=== PATIENT | male | born 1955 | race Caucasian/White ===

== ENCOUNTER 2020-01-12 00:39 | Inpatient (IN) | payer OTHER ==
[2020-01-12 01:08] LABS: #Eosinphils 0.2 thou/uL (0.0-0.7); #Lymphocytes 1.7 thou/uL (1.20-3.40); #Monocytes 0.8 thou/uL (0.11-0.59); #Neutrophils 3.3 thou/uL (1.40-6.50); %Basophils 0.4 % (0.0-1.0); %Eosinophils 3.4 % (0.0-10.0); %Lymphocytes 27.8 % (21.0-51.0); %Monocytes 13.3 % (0.0-10.0); %Neutrophils 55.1 % (42.0-75.0); Hemoglobin 16.3 g/dL (14.0-18.0); Mean Corpuscular HGB CONC 34.5 g/dL (32.0-36.0); Mean Corpuscular Hemoglobin 30.7 pg (27.0-31.0); Mean Corpuscular Volume 89.2 fL (78.0-98.0); Mean Platelet Volume 7.5 fL (7.4-10.4); Platelet Count 265 thou/uL (130-400); RBC Distribution Width 11.3 % (11.5-14.5); Red Blood Cell (RBC) Count 5.29 mill/uL (4.70-6.10)
[2020-01-12 01:37] LABS: ALT (SGPT) 18 U/L (8-55); AST (SGOT) 19 U/L (5-34); Albumin 4.4 g/dL (3.4-4.8); Alkaline Phosphatase 76 U/L (40-110); Anion Gap 17 mmol/L (10-20); BUN (Urea Nitrogen) 19 mg/dL (8.4-25.7); Bilirubin, Total 0.4 mg/dL (0.2-1.2); Calc. Creatinine Clearance 0 mL/min (70-130); Calcium 9.6 mg/dL (7.8-10.44); Carbon Dioxide 22 mmol/L (23-31); Chloride 104 mmol/L (98-107); Estimated GFR-MDRD 80; Globulin 2.3 g/dL (2.4-3.5); Glucose 111 mg/dL (80-115); Potassium 4.2 mmol/L (3.5-5.1); Protein, Total 6.7 g/dL (5.8-8.1); Sodium 139 mmol/L (136-145)
[2020-01-12] MEDS ORDERED: Diltiazem 125 MG/25 ML ONE (02:17)
[2020-01-12] MEDS ORDERED: Diltiazem 125 MG in Sodium Chloride 0.9% 100 ML IVPB SCH (02:30)
[2020-01-12] MEDS ORDERED: Acetaminophen 325 MG TAB PO PRN (02:46)
[2020-01-12] MEDS ORDERED: Senokot S 8.6-50 MG TAB PO PRN (02:46)
[2020-01-12 04:41] VITALS: BMI 28.8
--- NOTE | 2020-01-12 04:42 | HP ---
CHIEF COMPLAINT: Palpitations. HISTORY OF PRESENT ILLNESS: The patient is a very pleasant 64-year-old male, who comes into the hospital after feeling significant amount of palpitations x1 day. The patient states that he was trying to have a bowel movement, was treating quite a bit, started feeling that his heart was racing. At that time, he took his blood pressure and noted that his heart rate was in the 130s. The patient states that this has never happened to him before. The patient stated that he did have some lightheadedness initially when he felt the palpitations. PAST MEDICAL HISTORY: He has a history of hypertension. PAST SURGICAL HISTORY: He had ventral hernia repair and tonsillectomy. FAMILY HISTORY: Father of liver cancer. Mother had COPD. SOCIAL HISTORY: He denies any alcohol use, drug use, or smoking history. He is a full code. ALLERGIES: HE HAS NO KNOWN DRUG ALLERGIES. MEDICATIONS: Aspirin 81 mg daily. Currently he is on: 1. Ibuprofen. 2. Amlodipine 5 mg daily. 3. Irbesartan 75 mg p.o. daily. PHYSICAL EXAMINATION: VITAL SIGNS: Temperature 97.9, 97% on room air, 17, 155/106 initially, and his heart rate was 143. GENERAL: He is awake, alert, and oriented x3. Does not appear in distress. CV: Irregularly irregular. No murmurs or rubs heard. LUNGS: Clear to auscultation. No rhonchi or wheezes noted. ABDOMEN: Soft and nontender. Bowel sounds are present x2. EXTREMITIES: No edema. Pedal pulses are present x2. NEUROVASCULAR: No focal deficits noted. SKIN: No cuts, lesions or bruises noted. LABORATORY RESULTS: As of the following; WBCs of 6.0, hemoglobin of 16.3, hematocrit of 47.2, platelets of 265. Chemistry; sodium of 139, potassium of 4.2, BUN of 19, creatinine 0.95. Troponin x1 was negative. His chest x-ray did not show any acute abnormalities. EKG showed atrial fibrillation. ASSESSMENT AND PLAN: The patient is a very pleasant 64-year-old male, who presents to the hospital with complaints of palpitations. 1. Atrial fibrillation with rapid ventricular rate, new onset. The patient's CHADS-VASc score is 1 on calculation. He is currently on aspirin and we will continue that. He is currently on a Cardizem drip we will continue that. We will also get Cardiology involved. We will get an echocardiogram and check a TSH. 2. Hypertension. We will continue his home medications. 3. Deep venous thrombosis prophylaxis. We will put the patient on subcu Lovenox. Job ID: [id number]
[2020-01-12 04:56] LABS: #Basophils 0.1 thou/uL (0.0-0.2); #Eosinphils 0.2 thou/uL (0.0-0.7); #Lymphocytes 1.5 thou/uL (1.20-3.40); #Monocytes 0.7 thou/uL (0.11-0.59); #Neutrophils 2.9 thou/uL (1.40-6.50); %Eosinophils 2.8 % (0.0-10.0); %Lymphocytes 28.4 % (21.0-51.0); %Monocytes 12.4 % (0.0-10.0); %Neutrophils 55.4 % (42.0-75.0); Hemoglobin 15.2 g/dL (14.0-18.0); Mean Corpuscular HGB CONC 33.9 g/dL (32.0-36.0); Mean Corpuscular Hemoglobin 30.1 pg (27.0-31.0); Mean Corpuscular Volume 88.9 fL (78.0-98.0); Mean Platelet Volume 7.5 fL (7.4-10.4); Platelet Count 259 thou/uL (130-400); RBC Distribution Width 11.3 % (11.5-14.5); Red Blood Cell (RBC) Count 5.05 mill/uL (4.70-6.10); White Blood Cell (WBC) Count 5.3 thou/uL (4.8-10.8)
[2020-01-12 05:29] LABS: Troponin I Less than 0.010 ng/mL (< 0.028)
[2020-01-12 05:30] LABS: Anion Gap 11 mmol/L (10-20); BUN (Urea Nitrogen) 16 mg/dL (8.4-25.7); Calc. Creatinine Clearance 134 mL/min (70-130); Calcium 9.3 mg/dL (7.8-10.44); Carbon Dioxide 25 mmol/L (23-31); Chloride 107 mmol/L (98-107); Estimated GFR-MDRD 88; Glucose 98 mg/dL (80-115); Potassium 4.1 mmol/L (3.5-5.1); Sodium 139 mmol/L (136-145)
[2020-01-12 08:02] LABS: Troponin I Less than 0.010 ng/mL (< 0.028)
[2020-01-12] MEDS ORDERED: Naproxen 500 MG TAB PO PRN (08:45)
[2020-01-12] MEDS ORDERED: Loratadine 10 MG TAB PO PRN (08:45)
[2020-01-12] MEDS ORDERED: Fluticasone Propionate Nasal Spray 16 gm Bottle NASAL SCH (09:00)
[2020-01-12] MEDS ORDERED: Losartan 25 MG TAB PO SCH ×2 (09:00)
[2020-01-12] MEDS ORDERED: Aspirin 81 mg Enteric Coated Tablet PO SCH (09:00)
[2020-01-12] MEDS ORDERED: Amlodipine 10 MG TAB PO SCH (09:00)
[2020-01-12] MEDS ORDERED: Amlodipine 5 MG TAB PO SCH (09:00)
[2020-01-12] MEDS ORDERED: Enoxaparin Sodium 40 MG/0.4 ML SYRINGE SC SCH (09:00)
[2020-01-12] MEDS ORDERED: Aspirin 325 mg Enteric Coated Tablet PO SCH (09:00)
--- NOTE | 2020-01-12 09:38 | RAD ---
Chest one view HISTORY: Palpitations. FINDINGS: No comparison. Cardiac silhouette is magnified and upper limits of normal in size. Pulmonar y vasculature is unremarkable. Mediastinum is midline. No lobar consolidation or evidence of pneumothorax. Right lateral costophreni c angle is excluded from the image. IMPRESSION: No active cardiopulmonary abnormalities are demonstrated.
--- NOTE | 2020-01-12 09:42 | CON ---
DATE OF CONSULTATION: 01/12/2020 REASON FOR CONSULTATION: Atrial fibrillation. HISTORY OF PRESENT ILLNESS: Mr. Olivarez is a very pleasant 64-year-old gentleman with no significant past medical history outside of hypertension, who states he had significant constipation. Per patient, developed fluttering and palpitations. Heart rate was in the 130s. He then proceeded to the emergency room. No chest pain or pressure noted. PAST MEDICAL HISTORY: Hypertension. PAST SURGICAL HISTORY: Ventral hernia repair, tonsillectomy. SOCIAL HISTORY: No current tobacco or alcohol use. ALLERGIES: NONE. MEDICATIONS: Include 1. Amlodipine. 2. Irbesartan. REVIEW OF SYSTEMS: A 10-point review of systems is reviewed and as above, otherwise negative. PHYSICAL EXAMINATION: GENERAL: Patient is a pleasant male who is in no acute distress. The patient appears their stated age. VITAL SIGNS: Blood pressure 108/83, pulse 103, temperature 98.3. NEUROLOGIC: The patient is alert and oriented x3 with no focal neurologic deficits. HEENT: Sclerae without icterus. Mouth has moist mucous membranes with normal pallor. NECK: No JVD. Carotid upstroke brisk. No bruits bilaterally. LUNGS: Clear to auscultation with unlabored respirations. BACK: No scoliosis or kyphosis. CARDIAC: Regular rate and rhythm with normal S1 and S2. No S3 or S4 noted. No significant rubs, murmurs, thrills, or gallops noted throughout the precordium. PMI is not displaced. There is no parasternal heave. ABDOMEN: Soft, nontender, nondistended. No peritoneal signs present. No hepatosplenomegaly. No abnormal striae. EXTREMITIES: 2+ femoral and 2+ dorsalis pedis pulses. No cyanosis, clubbing, or edema. SKIN: No gross abnormalities. PERTINENT LABORATORY DATA: Hemoglobin 15.2, hematocrit 44.9. TSH 3.0. BNP within normal limits. IMPRESSION: New onset atrial fibrillation. RECOMMENDATIONS: 1. Continue IV Cardizem. 2. Add p.o. Cardizem. 3. Add Lovenox 1 mcg/kg subcu q.12. 4. Bedside echo did appear within normal limits. 5. The patient will likely convert back to sinus. If he does not, would recommend VLADIMIR cardioversion on Tuesday. Job ID: [id number]
[2020-01-12] MEDS ORDERED: Calcium Carbonate 500 MG ChewTAB PO PRN (09:51)
[2020-01-12] MEDS ORDERED: Acetaminophen/Codeine 30-300mg Tablet PO PRN (09:51)
[2020-01-12] MEDS ORDERED: traMADol HCl 50 MG TAB PO PRN (09:51)
[2020-01-12] MEDS ORDERED: Famotidine 20 MG TAB PO PRN (09:51)
[2020-01-12] MEDS ORDERED: Enoxaparin Sodium 100 MG/ML SYRINGE SC SCH ×2 (10:00→21:00)
[2020-01-12] MEDS: Losartan 25 MG TAB PO SCH (10:49)
[2020-01-12] MEDS: Fluticasone Propionate Nasal Spray 16 gm Bottle NASAL SCH (10:56)
--- NOTE | 2020-01-12 17:04 | PRG ---
DATE OF SERVICE: 01/12/2020 SUBJECTIVE: Mr. Olivarez continues to be in atrial fibrillation with rapid ventricular response. He has been treated medically with Cardizem p.o. He continues to be on IV Cardizem. OBJECTIVE: GENERAL: Patient is a pleasant gentleman, who is in no acute distress. The patient appears their stated age. VITAL SIGNS: Heart rate 90s to 120s, respirations 18, blood pressure 135/66. NEUROLOGIC: The patient is alert and oriented x3 with no focal neurologic deficits. HEENT: Sclerae without icterus. Mouth has moist mucous membranes with normal pallor. NECK: No JVD. Carotid upstroke brisk. No bruits bilaterally. LUNGS: Clear to auscultation with unlabored respirations. BACK: No scoliosis or kyphosis. CARDIAC: Irregularly irregular. ABDOMEN: Soft, nontender, nondistended. No peritoneal signs present. No hepatosplenomegaly. No abnormal striae. EXTREMITIES: 2+ femoral and 2+ dorsalis pedis pulses. No cyanosis, clubbing, or edema. SKIN: No gross abnormalities. PERTINENT LABORATORY DATA: Hemoglobin 15.2, hematocrit 44.9. Creatinine 0.87. DIAGNOSTIC STUDIES: Echo Doppler shows LVEF 50% to 55%. IMPRESSION: New onset atrial fibrillation. RECOMMENDATIONS: Initial plan was to wait until Tuesday to proceed with VLADIMIR cardioversion if he was still in atrial fibrillation. Mr. Olivarez would like to proceed with a VLADIMIR cardioversion tomorrow. We discussed VLADIMIR in full detail. Risks include but not limited to following: Damage to teeth, mouth, back of throat; damage to esophagus as well as reaction to medication. All questions were answered. Given the above, the patient agreed to proceed with the procedure. Also discussed cardioversion with risks include, but not limited to the following: Stroke, need for repeat cardioversion, failed cardioversion as well as burning of skin. Also complications from antiarrhythmic medications. All questions were answered. Given the above, the patient agreed to proceed with procedure. We will switch from Lovenox to Eliquis. We will also recommend flecainide b.i.d. Job ID: [id number]
[2020-01-12] MEDS ORDERED: Enoxaparin Sodium 120 MG/0.8 ML SYRINGE SC SCH (21:00)
[2020-01-12] MEDS: Apixaban 5 MG TAB PO SCH (21:14)
[2020-01-12] MEDS: Flecainide 50 MG TAB PO SCH (21:15)
[2020-01-13 04:42] LABS: #Basophils 0.1 thou/uL (0.0-0.2); #Eosinphils 0.1 thou/uL (0.0-0.7); #Lymphocytes 1.6 thou/uL (1.20-3.40); #Monocytes 0.6 thou/uL (0.11-0.59); #Neutrophils 2.2 thou/uL (1.40-6.50); %Basophils 1.2 % (0.0-1.0); %Lymphocytes 34.9 % (21.0-51.0); %Monocytes 12.3 % (0.0-10.0); %Neutrophils 48.7 % (42.0-75.0); Hemoglobin 14.6 g/dL (14.0-18.0); Mean Corpuscular HGB CONC 33.4 g/dL (32.0-36.0); Mean Corpuscular Hemoglobin 29.9 pg (27.0-31.0); Mean Corpuscular Volume 89.6 fL (78.0-98.0); Mean Platelet Volume 7.4 fL (7.4-10.4); Platelet Count 242 thou/uL (130-400); RBC Distribution Width 11.2 % (11.5-14.5); Red Blood Cell (RBC) Count 4.89 mill/uL (4.70-6.10); White Blood Cell (WBC) Count 4.4 thou/uL (4.8-10.8)
[2020-01-13 05:02] LABS: Anion Gap 12 mmol/L (10-20); BUN (Urea Nitrogen) 15 mg/dL (8.4-25.7); Calc. Creatinine Clearance 120 mL/min (70-130); Calcium 8.9 mg/dL (7.8-10.44); Carbon Dioxide 23 mmol/L (23-31); Chloride 109 mmol/L (98-107); Estimated GFR-MDRD 78; Glucose 102 mg/dL (80-115); Sodium 140 mmol/L (136-145)
[2020-01-13] MEDS ORDERED: Aspirin 81 mg Enteric Coated Tablet PO SCH (09:00)
[2020-01-13] MEDS: Fluticasone Propionate Nasal Spray 16 gm Bottle NASAL SCH (09:04)
[2020-01-13] MEDS: Losartan 25 MG TAB PO SCH (09:04)
[2020-01-13] MEDS: Flecainide 50 MG TAB PO SCH (09:05)
[2020-01-13] MEDS: Apixaban 5 MG TAB PO SCH (09:05)
[2020-01-13 10:42] VITALS: BP 140/81; TEMP 97.9
--- NOTE | 2020-01-13 10:52 | PRG ---
DATE OF SERVICE: 01/13/2020 SUBJECTIVE: Mr. Olivarez is doing well. He converted to sinus rhythm this morning. He has been off IV Cardizem. OBJECTIVE: VITAL SIGNS: Blood pressure 109/67, pulse 69, and temperature 97.8. LUNGS: Clear to auscultation. HEART: Regular rate and rhythm. ABDOMEN: Soft, nontender, and nondistended. EXTREMITIES: No edema. IMPRESSION: 1. Paroxysmal atrial fibrillation. 2. Hypertension. RECOMMENDATION: The patient's CHADs score is 2. We recommend anticoagulation therapy. I discussed risks and benefits of Eliquis. He is agreeable. We will add Eliquis 5 mg p.o. b.i.d. We would also change short-acting Cardizem to long-acting Cardizem at 180 mg one p.o. q.a.m. We will also recommend discontinuing amlodipine in place of ARB for blood pressure control. Continue flecainide 50 mg p.o. b.i.d. Plan is to follow Mr. Olivarez in the office in next 1 to 2 weeks. Job ID: [id number]
--- NOTE | 2020-01-13 12:02 | DIS ---
DATE OF ADMISSION: 01/12/2020 DATE OF DISCHARGE: 01/13/2020 DISCHARGE DISPOSITION: Home. FOLLOWUP: 1. Follow up with Dr. Sanford Rojas in 1 week. 2. Follow up with Dr. Richard Tsang in 1 week. The patient was seen and examined on the day of discharge. Denies any new complaints. Vital signs showed temperature 97.9, pulse rate of 79, respirations of 18, blood pressure of 140/81, O2 saturation 94% on room air. DISCHARGE MEDICATIONS: 1. Flecainide 50 mg b.i.d. 2. Eliquis 5 mg b.i.d. 3. Cardizem 180 mg daily. 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 Tsang. SIGNIFICANT LABS: Troponins were negative. Electrolytes in normal range. WBC on admission 6.0 with hemoglobin 16.3, platelet count of 265. Respiratory viral panel was positive for rhinovirus. Echocardiogram showed left ventricular ejection fraction of 50% to 55% with mild dilatation of the left atrium. TSH was 3.0. BRIEF HOSPITAL COURSE: The patient is a 64-year-old male with hypertension, presented to the hospital with palpitations. His workup was consistent with atrial fibrillation with rapid ventricular response with heart rate of 130s. He was started on Cardizem drip along with 1 mg/kg of Lovenox. He converted spontaneously to sinus rhythm after flecainide. He has been started on Eliquis. He understands the risk associated with Eliquis. He remained in sinus rhythm overnight. His workup was also consistent with rhinovirus. FINAL DIAGNOSES: 1. Atrial fibrillation with rapid ventricular response, converted to sinus rhythm, started on anticoagulation. 2. Hypertension. 3. Rhinovirus infection. 4. Chronic kidney disease, stage 2. 5. Mild leukopenia on the day of discharge with WBC of 4.4, probably secondary to rhinovirus infection. Job ID: [id number]
== END 2020-01-13 10:55 | disposition home or self-care (01) | DRG 310 ==
LOC: ERS 00:39 → 2NO 02:44
PROVIDERS: ADMIT Internal Medicine; ATTEND Internal Medicine
DX: I48.0 Paroxysmal atrial fibrillation (principal); I08.1 Rheumatic disorders of both mitral and tricuspid valves; I12.9 Hypertensive chronic kidney disease with stage 1 through stage 4 chronic kidney disease, or unspecified chronic kidney disease; N18.2 Chronic kidney disease, stage 2 (mild); D72.818 Other decreased white blood cell count; B34.8 Other viral infections of unspecified site; Z80.8 Family history of malignant neoplasm of other organs or systems; Z83.6 Family history of other diseases of the respiratory system
CPT/HCPCS: 36415; 71045; 80048; 80053; 83735; 84443; 84484; 85025; 87633; 93005; 93306; J1650; J3490

== ENCOUNTER 2020-02-15 08:01 | Outpatient (CLI) | payer OTHER ==
[2020-02-15] MEDS ORDERED: Iopamidol 370 76% 100 ML VIAL ONE (08:12)
--- NOTE | 2020-02-21 12:10 | CT ---
CTA HEART WITH AND WITHOUT CONTRAST: Axial tomograms obtained through the heart without IV contrast to obtain coronary calcium scoring. This was followed by CTA of heart with IV contrast following an angio protocol with multiplanar recon struction, 3D postprocessing, and evaluation on 3D work station. INDICATION: Recent arrhythmia. The patient recently was treated for atrial fibrillation and has now converted to normal sinus rhythm. CT CALCIUM SCORING: Left main: Score 0. Right coronary artery: Score 145. LAD: Score 44. Circumflex: Score 52. Posterior descending artery: Score 0. Total Score: 241. IMPRESSION: Coronary calcium score 241 indicates moderate atherosclerotic plaque. This indicates mild coronary a rtery disease is likely with significant narrowing possible. CTA HEART: The patient took oral beta blockers prior to arrival. Initial heart rate was in the 60s which was ad equate for CT coronary exam. However, once injection was instituted, the patient's heart rate increa sed to 95 which degrades the study. The CTA images are suboptimal due to the increased heart rate. Review of coronary artery anatomy shows a normal origin of left main and right coronary artery. Aort ic cusps appear normal. A ramus artery originates at the left main trifurcation at the proximal LAD. The LAD is small in its mid and distal portions. Circumflex is small in its distal portion. The patient has a dominant right coronary. Left Main: Left main measures approximately 8 mm length and is unremarkable with no evidence of soft or calcifie d plaque. No stenosis. LAD: There is a focus of dense calcification in the mid LAD. Significant stenosis at this location cannot be excluded. LAD is otherwise unremarkable with no other significant calcified or soft plaque ident ified. Ramus: The ramus arises as noted above at the left main trifurcation. There is a very dense calcification i n this vessel proximally located approximately 2 cm from its origin. There is evidence of significan t stenosis at this focus of dense calcification. Circumflex: There is calcified plaque in the proximal circumflex just beyond its origin. This produces mild to m oderate stenosis but does not appear to be hemodynamically significant by NASCET criteria (greater th an 50%). There is a dense focus of calcified plaque in the proximal left circumflex slightly more di stally. Degree of stenosis is difficult to accurately assess due to motion artifact and the dense c alcification. This appears to approach hemodynamically significance (50% diameter). Right Coronary Artery: There is dense calcified plaque in the proximal right coronary artery approximately 2-3 cm beyond its origin. There is motion artifact due to increased heart rate which degrades luminal evaluation. I cannot exclude significant stenosis in this proximal right coronary artery. IMPRESSION: Densely calcified plaque in the proximal coronary arteries as detailed above. There is evidence of s ignificant stenosis in the mid left anterior descending, proximal ramus, proximal circumflex, and pro ximal right coronary. SOFT TISSUES: The visualized lung keane are clear. The mediastinum is unremarkable with nonspecific hilar lymph nodes. There are calcified hilar lymph nodes on the right indicating prior granulomatous infection. The pulmonary arteries are opacified an d unremarkable. The thoracic aorta is unremarkable with mild soft plaque seen in the upper descendin g thoracic aorta. No aneurysmal dilatation. Osseous structures unremarkable. Images through the upper abdomen show a nonspecific indeterminate lesion in the superior left lobe of the liver which measures 1.2 cm. Hounsfield units were recorded at 35 which makes this an indetermi octaviano lesion. IMPRESSION: 1. Indeterminate lesion superior liver. Recommend further evaluation with hepatic ultrasound or CT abdomen with and without contrast. 2. Nonspecific hilar lymph nodes with calcified right hilar lymph nodes indicating prior granulomato us process. POS: [facility]
== END 2020-02-15 08:02 | disposition home or self-care (01) ==
LOC: BICCT 08:01
PROVIDERS: ATTEND Internal Medicine Clinical Cardiac Electrophysiology
DX: R93.1 Abnormal findings on diagnostic imaging of heart and coronary circulation (principal); R06.02 Shortness of breath; I25.10 Atherosclerotic heart disease of native coronary artery without angina pectoris; K76.9 Liver disease, unspecified; I89.8 Other specified noninfective disorders of lymphatic vessels and lymph nodes
CPT/HCPCS: 75574; 82565; Q9967

== ENCOUNTER 2021-05-13 17:30 | Outpatient (CLI) | payer MEDICARE, OTHER | END 2021-05-13 17:31 | disposition home or self-care (01) | LOC: SLEEPLAB 17:30 | PROVIDERS: ATTEND Internal Medicine | DX: G47.33 Obstructive sleep apnea (adult) (pediatric) (principal); R06.83 Snoring; I25.10 Atherosclerotic heart disease of native coronary artery without angina pectoris; I48.91 Unspecified atrial fibrillation; G47.00 Insomnia, unspecified; I10 Essential (primary) hypertension | CPT/HCPCS: 95806 ==